=== PATIENT | male | born 1990 | race Caucasian/White ===

== ENCOUNTER 2017-06-26 13:12 | Inpatient (IN) | payer BC, OTHER ==
[~2017-06-26] VITALS: Ht 182.9 cm; Wt 75.3 kg
[2017-06-26] MEDS ORDERED: MIRALAX 17 GM POWD.PACK PO PRN (15:45)
[2017-06-26] MEDS ORDERED: LOPERAMIDE HCL 2 MG CAPSULE PO PRN ×2 (15:45)
[2017-06-26] MEDS ORDERED: LORAZEPAM 1 MG TABLET PO PRN ×2 (15:45)
[2017-06-26] MEDS ORDERED: LORAZEPAM 2 MG/1 ML VIAL IM PRN (15:45)
[2017-06-26] MEDS ORDERED: CLONIDINE HCL 0.1 MG TABLET PO PRN (15:45)
[2017-06-26] MEDS ORDERED: DICYCLOMINE HCL 20 MG TABLET PO PRN (15:45)
[2017-06-26] MEDS ORDERED: METHOCARBAMOL 750 MG TABLET PO PRN (15:45)
[2017-06-26] MEDS ORDERED: ONDANSETRON 4 MG/2 ML VIAL IM PRN (15:45)
[2017-06-26] MEDS ORDERED: MAGNESIUM HYDROXIDE 30 ML LIQUID UDC PO PRN (15:45)
[2017-06-26] MEDS ORDERED: HYDROXYZINE PAMOATE 25 MG CAPSULE PO PRN (15:45)
[2017-06-26] MEDS ORDERED: ONDANSETRON ODT 4 MG TAB.RAPDIS SL PRN (15:45)
[2017-06-26] MEDS ORDERED: MAG HYDROX/AL HYDROX/SIMETH 30 ML LIQUID UDC PO PRN (15:45)
[2017-06-26] MEDS ORDERED: BUPRENORPHINE HCL 2 MG TAB.SUBL SL PRN (15:45)
[2017-06-26] MEDS ORDERED: diphenhydrAMINE 50 MG CAPSULE PO PRN (15:45)
[2017-06-26] MEDS ORDERED: ACETAMINOPHEN 325 MG TABLET PO PRN (15:45)
[2017-06-26 16:00] VITALS: BP 115/66
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
[2017-06-26] MEDS ORDERED: MOME13HF INH (16:31)
[2017-06-26] MEDS ORDERED: BUDE10.2 INH (16:31)
[2017-06-26 16:52] LABS: *AMPHETAMINE, URINE NEGATIVE (NEGATIVE); *BARBITURATE, URINE NEGATIVE (NEGATIVE); *CANNABINOID, URINE POSITIVE (NEGATIVE); *COCCAINE, URINE NEGATIVE (NEGATIVE); *OPIATE, URINE POSITIVE (NEGATIVE); *PHENCYCLIDINE SCREEN,URINE NEGATIVE (NEGATIVE)
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
[2017-06-26 20:16] LABS: BASOPHILS # (AUTO) 0.1 K/uL (0.0-8.0); BASOPHILS % (AUTO) 1.2 % (0.0-2.0); EOSINOPHILS # (AUTO) 0.4 K/uL (0.0-0.7); EOSINOPHILS % (AUTO) 4.1 % (0.0-7.0); HEMATOCRIT 40.9 % (40-50); HEMOGLOBIN 13.4 G/DL (14.0-18.0); LYMPHOCYTES # (AUTO) 2.8 K/UL (0.8-4.8); LYMPHOCYTES % (AUTO) 30.3 % (20.5-51.5); MEAN CORPUSCULAR HEMOGLOBIN 29.4 UUG (27.0-31.0); MEAN CORPUSCULAR HGB CONC 33 g/dL (32.0-37.0); MEAN CORPUSCULAR VOLUME 89.8 FL (82.0-92.0); MONOCYTES # (AUTO) 0.8 K/UL (0.1-1.30); MONOCYTES % (AUTO) 8.6 % (0.0-11.0); NEUTROPHILS # (AUTO) 5.2 K/UL (1.8-8.9); NEUTROPHILS % (AUTO) 55.8 % (38.5-71.5); PLATELET COUNT (AUTO) 266 K/UL (150-450); RED BLOOD CELL COUNT(AUTO) 4.55 MIL/UL (4.7-6.1); WHITE BLOOD COUNT (AUTO) 9.3 K/UL (4.0-11.2)
[2017-06-26 20:29] LABS: ETHANOL < 3 MG/DL (0-0)
[2017-06-26 20:32] LABS: ALANINE AMINOTRANSFERASE 34 U/L (16-63); ALKALINE PHOSPHATASE 60 U/L (50-136); ASPARTATE AMINOTRANSFERASE 16 U/L (15-37); BILIRUBIN,TOTAL 0.3 mg/dL (0.2-1.0); CARBON DIOXIDE 31 mmol/L (21-32); CHLORIDE 104 mmol/L (98-107); GLUCOSE 72 mg/dL (74-106); POTASSIUM 3.6 mmol/L (3.5-5.1); TOTAL PROTEIN, SERUM 6.5 g/dL (6.4-8.2); UREA NITROGEN, BLOOD 10 mg/dL (7-18)
[2017-06-26] MEDS ORDERED: LORAZEPAM 1 MG TABLET PO ONE (21:00)
--- NOTE | 2017-06-27 07:20 | NUR ---
Start of Shift Endorsement received from nightshift nurse. PT is a 27 y/o male admitted for Benzo and Opiate dependence. Pt has been placed on a 5 day Ativan and 5 day Subutex taper. Pt is tolerating the taper AEB COWS 5, CIWA 5 at 1999. PT reports sleeping 11 hours. PT did not receive any PRN medications. Pt is alert and oriented x4. VS WNL. Full Code. All safety precautions are in place, side rails x2, bed in flat position. All needs have been met at this time, will continue to monitor.
[2017-06-27 08:00] VITALS: BP 139/77
[2017-06-27] MEDS: BUPRENORPHINE HCL 2 MG TAB.SUBL SL SCH ×4 (09:00→21:13)
[2017-06-27] MEDS: LORAZEPAM 1 MG TABLET PO SCH ×4 (09:00→21:13)
[2017-06-27] MEDS ORDERED: TUBERCULIN,PURIF.PROT.DERIV. 5 TU/0.1 ML TEST ID ONE (09:00)
[2017-06-27 12:00] VITALS: BP 130/72
[2017-06-27] MEDS: GABAPENTIN 300 MG CAPSULE PO SCH ×2 (14:29→21:13)
[2017-06-27 16:00] VITALS: BP 128/80
--- NOTE | 2017-06-27 18:27 | NUR ---
End of Shift Endorsement given to nightshift nurse. PT is a 27 y/o male admitted for Benzo and Opiate dependence. Pt has been placed on a 5 day Ativan and 5 day Subutex taper. Pt is tolerating the taper AEB COWS 6, CIWA 3 at 1600. PT participates in groups and activities. Pt received PRN Robaxin and Motrin for back pain , medications were effective. Educated Pt on medication and diet regimen. Encouraged pt to drink more fluids. Pt is alert and oriented x4. VS WNL. Full Code. All safety precautions are in place, side rails x2, bed in flat position. All needs have been met at this time, will continue to monitor.
--- NOTE | 2017-06-27 19:12 | NUR ---
Start of shift note Received report from day shift nurse. Pt is a 27 yo male, A+Ox4, presenting to [facility] for Benzo/Opiate dependence. Pt has Allergies to Cefaclor, is on Full code status, and on Regular diet. Pt is on Fall and Seizure precautions. Pt has HX of facial reconstruction, cyst removal, and back injury. Pt is on 5 day Ativan and 5 day Subutex tapers, tolerated well. No s/s of distress noted at this time. Respirations even and unlabored. Will continue to monitor.
[2017-06-27 20:12] VITALS: BP 131/86
[2017-06-27] MEDS ORDERED: GABAPENTIN 300 MG CAPSULE PO SCH (21:00)
--- NOTE | 2017-06-27 21:17 | NUR ---
PRN Clonidine Pt c/o anxiety and requested for PRN Clonidine. Medication given and tolerated well. Will reassess within 1 HR. Will continue to monitor.
--- NOTE | 2017-06-27 22:15 | NUR ---
PRN Clonidine Reassessment Medication effective. Pt expresses reduction in anxiety. No s/s of ASE/distress noted at this time. Respirations even and unlabored. Will continue to monitor.
[2017-06-28 00:12] VITALS: BP 124/76
[2017-06-28 04:16] VITALS: BP 123/72
[2017-06-28] MEDS: IBUPROFEN 600 MG TABLET PO PRN (05:53)
--- NOTE | 2017-06-28 05:59 | NUR ---
PRN Motrin, Robaxin, and Vistaril Pt c/o back pain 6/10 and anxiety. PRN Motrin, Robaxin, and Vistaril given and tolerated well. Will reassess within 1 HR. Will continue to monitor.
[2017-06-28 06:06] LABS: HEPATITIS B SURFACE AG Negative (Negative)
--- NOTE | 2017-06-28 06:53 | NUR ---
PRN Motrin, Robaxin, and Vistaril Reassessment Medications effective. Pt is resting in bed at this time. No s/s of ASE/distress noted at this time. Respirations even and unlabored. Will continue to monitor.
--- NOTE | 2017-06-28 07:00 | NUR ---
End of shift note Pt is a 27 yo male, A+Ox4, presenting to [facility] for Benzo/Opiate dependence. Pt has Allergies to Cefaclor, is on Full code status, and on Regular diet. Pt is on Fall and Seizure precautions. Pt has HX of facial reconstruction, cyst removal, and back injury. Pt is on 5 day Ativan and 5 day Subutex tapers, tolerated well. Pt was given PRN Clonidine @2117 and PRN Motrin, Robaxin, and Vistaril @0559. Pt slept for a total of 5 HRS. Last COWS: 3 and Last CIWA: 3 @0400. No s/s of distress noted at this time. Respirations even and unlabored. Will endorse to day shift nurse.
--- NOTE | 2017-06-28 07:20 | NUR ---
Start of Shift Endorsement received from nightshift nurse. PT is a 27 y/o male admitted for Benzo and Opiate dependence. Pt has been placed on a 5 day Ativan and 5 day Subutex taper. Pt is tolerating the taper AEB COWS 3, CIWA 3 at 0400. PT reports sleeping 5 hours. PT received PRN Motrin, Robaxin and Vistaril. Pt reports feeling anxious and restless upon morning assessment. Educated pt on deep breathing technique to help relieve his anxiety. Pt is alert and oriented x4. VS WNL. Full Code. All safety precautions are in place, side rails x2, bed in flat position. All needs have been met at this time, will continue to monitor.
[2017-06-28 08:00] VITALS: BP 115/61
[2017-06-28] MEDS: GABAPENTIN 300 MG CAPSULE PO SCH ×3 (08:17→20:45)
[2017-06-28] MEDS: LORAZEPAM 1 MG TABLET PO SCH ×3 (08:17→20:45)
[2017-06-28] MEDS: BUPRENORPHINE HCL 2 MG TAB.SUBL SL SCH ×3 (08:17→20:46)
[2017-06-28 12:00] VITALS: BP 105/68
[2017-06-28] MEDS ORDERED: BUPRENORPHINE HCL 2 MG TAB.SUBL SL ONE (12:15)
[2017-06-28] MEDS ORDERED: LORAZEPAM 1 MG TABLET PO ONE (12:15)
--- NOTE | 2017-06-28 14:11 | NUR ---
Prompted cleint to attend group, Client agreed to attend group.
[2017-06-28] MEDS: BACLOFEN 10 MG TABLET PO SCH ×2 (14:45→20:45)
[2017-06-28 16:00] VITALS: BP 130/74
--- NOTE | 2017-06-28 19:00 | NUR ---
End of Shift Endorsement given to nightshift nurse. PT is a 27 y/o male admitted for Benzo and Opiate dependence. Pt has been placed on a 5 day Ativan and 5 day Subutex taper. Pt is tolerating the taper and mildly withdrawing AEB COWS 4, CIWA 3 at 1600. PT participates in groups. Pt received one time dose of Subutex 4mg and Ativan 2mg per Dr. Mathis. Pt did not receive any PRN medications. Encouraged pt to participate in activities. Pt remains cooperative and follows diet and medication regimen. Intake: 2550ml, Void x8. Educated Pt on medication and diet regimen. Encouraged pt to drink more fluids. Pt is alert and oriented x4. VS WNL. Full Code. All safety precautions are in place, side rails x2, bed in flat position. All needs have been met at this time, will continue to monitor.
--- NOTE | 2017-06-28 19:10 | NUR ---
Start of shift note Received report from day shift nurse. Pt is a 27 yo male, A+Ox4, presenting to [facility] for Benzo/Opiate dependence. Pt has Allergies to Cefaclor, is on Full code status, and on Regular diet. Pt is on Fall and Seizure precautions. Pt has HX of facial reconstruction, cyst removal, and back injury. Pt is on 5 day Ativan and 5 day Subutex tapers, tolerated well. No s/s of distress noted at this time. Respirations even and unlabored. Will continue to monitor.
[2017-06-28 20:12] VITALS: BP 134/83
[2017-06-28] MEDS: CLONIDINE HCL 0.1 MG TABLET PO SCH (20:45)
[2017-06-29 00:22] VITALS: BP 131/79
[2017-06-29 04:28] VITALS: BP 127/76
--- NOTE | 2017-06-29 06:50 | NUR ---
End of shift note Pt is a 27 yo male, A+Ox4, presenting to [facility] for Benzo/Opiate dependence. Pt has Allergies to Cefaclor, is on Full code status, and on Regular diet. Pt is on Fall and Seizure precautions. Pt has HX of facial reconstruction, cyst removal, and back injury. Pt is on 5 day Ativan and 5 day Subutex tapers, tolerated well. Pt slept for a total of 4 HRS. Last COWS: 2 and Last CIWA: 1 @0400. No s/s of distress noted at this time. Respirations even and unlabored. Will endorse to day shift nurse.
--- NOTE | 2017-06-29 07:30 | NUR ---
START OF SHIFT NOTE Received report from night nurse, 27 year old male admitted for Benzo and Opiate dependence. Pt has been placed on a 5 day Ativan and 5 day Subutex taper. Patient has HX of facial reconstruction, cyst removal, and back injury. Per endorsement patient did not receive any PRN Slept for 4 hours, Last CIWA-. Patient remained compliant with treatment plan and medication regime. All safety measures in place, Call light within reach. Patient endorsed to night nurse in stable condition.
[2017-06-29] MEDS: IBUPROFEN 600 MG TABLET PO PRN (07:32)
--- NOTE | 2017-06-29 07:32 | NUR ---
PRN MOTRIN Patient was c/o of back aches 4/10, PRN Motrin 600mg Po was given as ordered. Will cont to monitor and reassess.
[2017-06-29 08:00] VITALS: BP 145/85
--- NOTE | 2017-06-29 08:32 | NUR ---
MOTRIN REASSESSMENT Patient reported medication was effective pain decreased to 1/10.
[2017-06-29] MEDS: BACLOFEN 10 MG TABLET PO SCH (08:49)
[2017-06-29] MEDS: LORAZEPAM 1 MG TABLET PO SCH ×2 (08:49→12:42)
[2017-06-29] MEDS: GABAPENTIN 300 MG CAPSULE PO SCH (08:49)
[2017-06-29] MEDS: CLONIDINE HCL 0.1 MG TABLET PO SCH ×3 (08:50→21:42)
[2017-06-29] MEDS ORDERED: BUPRENORPHINE HCL 2 MG TAB.SUBL SL SCH (09:00)
[2017-06-29] MEDS ORDERED: LORAZEPAM 1 MG TABLET PO SCH ×3 (09:00→21:00)
[2017-06-29 12:00] VITALS: BP 136/73
[2017-06-29] MEDS ORDERED: KETOROLAC TROMETHAMINE 30 MG INJ IM PRN (13:30)
[2017-06-29] MEDS: GABAPENTIN 400 MG CAPSULE PO SCH ×2 (14:10→21:42)
[2017-06-29] MEDS: BACLOFEN 20 MG TABLET PO SCH ×2 (14:10→21:43)
[2017-06-29] MEDS: BUPRENORPHINE HCL 2 MG TAB.SUBL SL SCH ×2 (14:11→21:43)
[2017-06-29 16:00] VITALS: BP 121/82
[2017-06-29] MEDS ORDERED: BUPRENORPHINE HCL 2 MG TAB.SUBL SL ONE (16:00)
--- NOTE | 2017-06-29 16:46 | NUR ---
SUBUTEX 2MG SL x1 GIVEN COWS score-11, One time Subutex 2mg SL given at this time. Will cont to monitor for effectiveness.
--- NOTE | 2017-06-29 17:16 | NUR ---
REASSESSMENT SUBUTEX 2MG SL Per patient, PRN Subutex was effective in nreducing patient's withdrawal symptoms. COWS score noted 7.
--- NOTE | 2017-06-29 19:14 | NUR ---
END OF SHIFT NOTE Patient is alert oriented x4. 27 year old male admitted for BENZO/OPIOID dependence. Patient has PMH of facial reconstruction, cyst removal, and back injury. Patient cont on 5 days Ativan taper/5 days Subutex taper tolerating well. Medications were effective in reducing withdrawal symptoms. Patient received PRN Motrin/ x1 dose of Subutex 2mg SL during shift noted to be effective. Skin intact warm and dry to touch. Last CIWA-7/COWS-8. Patient remained compliant with treatment plan and medication regime. All safety measures in place, Call light within reach. Patient endorsed to night nurse in stable condition.
--- NOTE | 2017-06-29 19:30 | NUR ---
START OF SHIFT Patient is 27-year-old male admitted on 06/26/17 for Xanax, Klonopin, Percocet, and PCP substance abuse. Patient has PmHx of back surgery, facial reconstructive surgery, cyst removed from left arm and seizure. Patient is FULL code, allergic to cefaclor, on regular diet. Upon assessment, patient is alert and oriented x4, complaining of some generalized body aches. Patient is currently on a 5 day Ativan and Subutex taper, tolerating well. Patient is on fall and seizure precautions, last seizure was 3 weeks ago. Patients skin is intact with exception to some minor abrasions on his right knee. Patients bed is locked in low position, side rails up x2, call light within reach. Will continue to monitor.
[2017-06-29 20:00] VITALS: BP 116/70
--- NOTE | 2017-06-30 | NUR ---
MIDNIGHT VITALS, CIWA & COWS Patient refused to be woken up for midnight vital signs. Patient's respirations are even and unlabored, no distress noted at this time. CIWA and COWS scores unable to be assessed while patient is asleep, to be scored while awake per protocol. Safety measures in place, will continue to monitor.
--- NOTE | 2017-06-30 04:00 | NUR ---
0400 VITALS, CIWA & COWS Patient refused to be woken up for 0400 vital signs. Patient's respirations are even and unlabored, no distress noted at this time. CIWA and COWS scores unable to be assessed while patient is asleep, to be scored while awake per protocol. Safety measures in place, will continue to monitor.
[2017-06-30] MEDS: IBUPROFEN 600 MG TABLET PO PRN ×2 (07:08→20:56)
--- NOTE | 2017-06-30 07:08 | NUR ---
PRN MOTRIN Patient complained of moderate to severe back pain, requested pain medication. PRN Motrin was given PO. Will endorse to day shift to reassess.
--- NOTE | 2017-06-30 07:14 | NUR ---
END OF SHIFT Patient is 27-year-old male admitted on 06/26/17 for Xanax, Klonopin, Percocet, and PCP substance abuse. Patient has PmHx of back surgery, facial reconstructive surgery, cyst removed from left arm and seizure. Patient is FULL code, allergic to cefaclor, on regular diet. Patient is on fall and seizure precautions, last seizure was 3 weeks ago. Patients skin is intact with exception to some minor abrasions on his right knee. PRN Motrin was given for back pain. Patients last COWS 6, CIWA 8. Patient slept for 8 hours, total intake 1138mL, void x3, no BM. Patients bed is locked in low position, side rails up x2, call light within reach. Will endorse to day shift.
--- NOTE | 2017-06-30 07:15 | NUR ---
Start of Shift Endorsement received from nightshift nurse. PT is a 27 y/o male admitted for Benzo and Opiate dependence. Pt has been placed on a 5 day Ativan and 5 day Subutex taper. Pt is tolerating the taper and moderately withdrawing AEB COWS 6, CIWA 8 at midnight. PT reports sleeping 8 hours. PT did not receive any PRN medications. Pt is alert and oriented x4. VS WNL. Full Code. All safety precautions are in place, side rails x2, bed in flat position. All needs have been met at this time, will continue to monitor.
[2017-06-30 08:00] VITALS: BP 123/78
[2017-06-30] MEDS: LORAZEPAM 1 MG TABLET PO SCH ×3 (08:20→20:55)
[2017-06-30] MEDS: CLONIDINE HCL 0.1 MG TABLET PO SCH ×2 (08:20→15:00)
[2017-06-30] MEDS: BACLOFEN 20 MG TABLET PO SCH ×3 (08:20→20:55)
[2017-06-30] MEDS: GABAPENTIN 400 MG CAPSULE PO SCH (08:20)
[2017-06-30] MEDS ORDERED: LORAZEPAM 1 MG TABLET PO SCH (09:00)
[2017-06-30] MEDS ORDERED: BUPRENORPHINE HCL 2 MG TAB.SUBL SL SCH (09:00)
[2017-06-30 12:00] VITALS: BP 108/62
[2017-06-30] MEDS ORDERED: BUPRENORPHINE HCL 2 MG TAB.SUBL SL ONE (13:30)
--- NOTE | 2017-06-30 13:45 | NUR ---
Activity Group Note: Client attended activity group. Client refused to participate in "Sequence" activity stating, "I don't even know what that game is." Client appeared to have a euthymic mood with flat affect. Client did not interact with peers or secondary social studies teacher, and left activity group 30 minutes early. nitro worker will continue to encourage participation in activity group.
--- NOTE | 2017-06-30 14:20 | NUR ---
Medication re-assessment Pt reports effectiveness AEB BM x1.
--- NOTE | 2017-06-30 15:21 | NUR ---
PRN Miralax Administered PRN Miralax due to pt reporting constipation. will re-assess. Addendum: 06/30/17 at 1906 by MARILIN FARLEY RN Medication was re-assessed and was effective. Pt reported BM x1
[2017-06-30 16:00] VITALS: BP 125/71
[2017-06-30] MEDS: BUPRENORPHINE HCL 2 MG TAB.SUBL SL SCH ×2 (16:42→20:56)
--- NOTE | 2017-06-30 19:06 | NUR ---
End of Shift Endorsement given to nightshift nurse. PT is a 27 y/o male admitted for Benzo and Opiate dependence. Pt has been placed on a 5 day Ativan and 5 day Subutex taper. Pt is tolerating the taper and moderately withdrawing AEB COWS 6, CIWA 5 at 1600. PT participates in groups and activities. Pt received one time dose of Subutex per Dr. Mathis. Pt received PRN Miralax, medication was effective AEB pt reporting BM x1. Intake: 3873ml, Void x5, BM x1. Pt remains cooperative and follows diet and medication regimen. Educated Pt on medication and diet regimen. Encouraged pt to drink more fluids. Pt is alert and oriented x4. VS WNL. Full Code. All safety precautions are in place, side rails x2, bed in flat position. All needs have been met at this time, will continue to monitor.
--- NOTE | 2017-06-30 19:38 | NUR ---
START OF SHIFT Patient is 27-year-old male admitted on 06/26/17 for Xanax, Klonopin, Percocet, and PCP substance abuse. Patient has past medical history of facial reconstructive surgery x2, back injury, cyst removal from left arm, and history of seizure; last seizure was 3 weeks ago. Patient is FULL code, on regular diet, and allergic to cefaclor. Patient is currently on 5 day Ativan and 5 day Subutex taper, tolerating well. Upon assessment, patient is alert and oriented x4, reports muscles aches in his face, back and legs, averaging 7/10 on pain scale. Patient has some minor skin abrasions on his right knee. Patient is on fall and seizure precautions, safety measures in place, bed locked in low position, side rails up x2, call light within reach. Will continue to monitor.
[2017-06-30 20:00] VITALS: BP 131/80
[2017-06-30] MEDS: GABAPENTIN 300 MG CAPSULE PO SCH (20:55)
--- NOTE | 2017-06-30 20:56 | NUR ---
PRN MOTRIN Patient complained of pain, 7/10, including his face, back and legs. Patient requested pharmacological pain relief. PRN Motrin 600mg PO given. Safety measures in place, call light within reach, will reassess in one hour.
--- NOTE | 2017-06-30 21:56 | NUR ---
PRN MOTRIN REASSESSMENT Patient reports pain relief, decrease in pain from 7/10 to 4/10, patient reports this as a tolerable level. Patient's breathing is even and unlabored, no respiratory distress noted at this time. Safety measures in place, call light within reach, will continue to monitor.
--- NOTE | 2017-07-01 | NUR ---
MIDNIGHT VITALS, COWS & CIWA Patient refused to be woken up for midnight vital signs. Patient's respirations at 16/min are even and unlabored, no distress noted at this time. COWS and CIWA scores unable to be assessed while patient is asleep, to be scored while awake per protocol. Safety measures in place, call light within reach, will continue to monitor.
--- NOTE | 2017-07-01 04:00 | NUR ---
4AM VITALS REFUSED, COWS & CIWA DEFERRED Patient refused to be woken up for 4AM vital signs. Patient's respirations at 16/min are even and unlabored, no distress noted at this time. COWS and CIWA deferred; unable to be assessed while patient is asleep, to be scored while awake per protocol. Safety measures in place, call light within reach, will continue to monitor.
--- NOTE | 2017-07-01 07:22 | NUR ---
END OF SHIFT Patient is 27-year-old male admitted on 06/26/17 for Xanax, Klonopin, Percocet, and PCP substance abuse. Patient has past medical history of facial reconstructive surgery x2, back injury, cyst removal from left arm, and history of seizure; last seizure was 3 weeks ago. Patient is FULL code, on regular diet, and allergic to cefaclor. Patient has some minor skin abrasions on his right knee. Patient received PRN Motrin for muscle aches and pains, PRN Motrin was effective. Last COWS score was 6, last CIWA score was 5. Patient slept 6 hours, total intake 795mL, void x2, BM x0. Patient is on fall and seizure precautions, safety measures in place, bed locked in low position, side rails up x2, call light within reach. Will endorse to day shift.
[2017-07-01 08:00] VITALS: BP 127/69
--- NOTE | 2017-07-01 08:00 | NUR ---
Start of shift note; Received report from night nurse. Patient is a 27 year old male admitted on 06/26/17 for Benzo/Opiate dependence. Patient reported history of facial reconstruction, back injury and seizure. Patient was placed on 5 day Ativan and 5 day Subutex tapers, no adverse reaction noted. Patient is on fall and seizure precaution. All safety measures secured. Will continue to monitor patient.
[2017-07-01] MEDS: GABAPENTIN 300 MG CAPSULE PO SCH ×2 (08:22→20:38)
[2017-07-01] MEDS: LORAZEPAM 1 MG TABLET PO SCH ×2 (08:22→20:38)
[2017-07-01] MEDS: BACLOFEN 20 MG TABLET PO SCH ×3 (08:22→20:38)
[2017-07-01] MEDS: IBUPROFEN 600 MG TABLET PO PRN (08:22)
[2017-07-01] MEDS: BUPRENORPHINE HCL 2 MG TAB.SUBL SL SCH ×2 (08:22→20:39)
--- NOTE | 2017-07-01 08:22 | NUR ---
PRN medication; Patient is complaining of back pain rated 5/10, PRN Motrin given PO. Will continue to monitor patient for effectiveness of medication.
[2017-07-01] MEDS ORDERED: LORAZEPAM 1 MG TABLET PO SCH (09:00)
[2017-07-01] MEDS ORDERED: BUPRENORPHINE HCL 2 MG TAB.SUBL SL SCH (09:00)
--- NOTE | 2017-07-01 09:22 | NUR ---
Re-assessment; Patient denies pain at this time. PRN medication noted to be effective.
[2017-07-01 12:00] VITALS: BP 130/78
--- NOTE | 2017-07-01 13:45 | NUR ---
Activity Group Note: Client attended activity group. When prompted, client refused to participate in "painting" activity. Client's mood appeared hostile with flat affect. Client stated, "I do not want to paint, I want to watch TV." Client was educated on protocol for activity group by social services analyst, but continued to watch TV. Client was prompted by database technician to cease watching TV, and client left the room. Client did not interact with peers. emergency worker will continue to encourage participation in activity group.
[2017-07-01 16:00] VITALS: BP 122/85
--- NOTE | 2017-07-01 18:19 | NUR ---
End of shift note; Patient is AOX4. Patient is a 27 year old male admitted on 06/26/17 for Benzo/Opiate dependence. Patient reported history of facial reconstruction, back injury and seizure. Patient was placed on 5 day Ativan and 5 day Subutex tapers, no adverse reaction noted. Patient is on fall and seizure precaution. Patient remained compliant with treatment plan and medication regime. Medications were effective in reducing withdrawal symptoms. All safety measures secured. Met all needs.
--- NOTE | 2017-07-01 19:30 | NUR ---
START OF SHIFT Patient is a 27 year old male admitted for Benzo/Opiate dependence. PMH of facial reconstruction, back injury and seizure. Patient was placed on 5 day Ativan and 5 day Subutex tapers, no adverse reaction noted. Patient is on fall and seizure precaution. Patient remains compliant with treatment plan and medication regime. Last COWS=3,CIWA=3.Pt is A/O X 4,allergic to Cefaclor,on regular diet,full code status. All safety measures in place per hospital policy,call light within reach. Met all needs. Will continue to monitor.
[2017-07-01 20:00] VITALS: BP 131/73
--- NOTE | 2017-07-02 | NUR ---
Pt refused V/S;COWS and CIWA deferred d/t sleep. Pt is in deep sleep,breathing is even and non labored,no s/s of distress noted.
--- NOTE | 2017-07-02 04:00 | NUR ---
Pt refused V/S;COWS and CIWA deferred d/t sleep. Pt is in deep sleep,breathing is even and non labored,no s/s of distress noted.
--- NOTE | 2017-07-02 06:43 | NUR ---
END OF SHIFT Patient is a 27 year old male admitted for Benzo/Opiate dependence. PMH of facial reconstruction, back injury and seizure. Patient was placed on 5 day Ativan and 5 day Subutex tapers, no adverse reaction noted. Patient is on fall and seizure precaution. Patient remains compliant with treatment plan and medication regime. Last COWS=3,CIWA=3.Pt is A/O X 4,allergic to Cefaclor,on regular diet,full code status.No PRN meds given last night.Pt slept 7 hrs,fluid intake was 1757 mls,voided x 4,b/m x 1. All safety measures in place per hospital policy,call light within reach. Met all needs. Will continue to monitor.
--- NOTE | 2017-07-02 07:16 | NUR ---
Start of shift note; Received report from night nurse. Patient is a 27 year old male admitted on 06/26/17 for Benzo/Opiate dependence. Patient reported history of facial reconstruction, back injury and seizure. Patient was placed on 5 day Ativan and 5 day Subutex tapers, no adverse reaction noted. Patient is on fall and seizure precaution. All safety measures secured. Patient had an uneventful night, no PRN medications were given. Will continue to monitor patient.
[2017-07-02 08:00] VITALS: BP 99/65
[2017-07-02] MEDS: IBUPROFEN 600 MG TABLET PO PRN ×2 (08:10→20:43)
[2017-07-02] MEDS: BACLOFEN 20 MG TABLET PO SCH ×3 (08:10→20:43)
[2017-07-02] MEDS: GABAPENTIN 300 MG CAPSULE PO SCH ×2 (08:10→20:43)
--- NOTE | 2017-07-02 08:10 | NUR ---
PRN medication; Patient is complaining of back pain rated 7/10, PRN Motrin 600mg PO given for pain. Will continue to monitor patient for effectiveness of medication.
[2017-07-02] MEDS ORDERED: BUPRENORPHINE HCL 2 MG TAB.SUBL SL SCH (09:00)
[2017-07-02] MEDS ORDERED: LORAZEPAM 1 MG TABLET PO SCH (09:00)
--- NOTE | 2017-07-02 09:10 | NUR ---
Re-assessment; Patient denies back pain at this time. PRN Motrin was effective.
[2017-07-02 12:00] VITALS: BP 104/65
[2017-07-02 16:00] VITALS: BP 122/83
--- NOTE | 2017-07-02 18:16 | NUR ---
End of shift note; Patient is AOX4. Patient is a 27 year old male admitted on 06/26/17 for Benzo/Opiate dependence. Patient reported history of facial reconstruction, back injury and seizure. Patient was placed on 5 day Ativan and 5 day Subutex tapers, no adverse reaction noted. Patient is on fall and seizure precaution. All safety measures secured. Patient remained compliant with treatment plan and medication regime. Medications were effective in reducing withdrawal symptoms. Met all needs.
--- NOTE | 2017-07-02 18:54 | NUR ---
PRN medication; Patient is complaining of generalized pain rated 6/10, Tylenol PO given for pain. Will endorse to night nurse for re-assessment.
[2017-07-02 20:00] VITALS: BP 131/71
--- NOTE | 2017-07-02 20:00 | NUR ---
START OF SHIFT Received report from day shift nurse. Pt attended a group meeting and returned to his room after. He is a 27 yo male admitted to [facility] on 06/26 for opiate and BZD dependence. He is A&O x4 and ambulatory. Allergic to cefaclor, full code status, and on a regular diet. PMH of facial reconstructive surgery, left arm cyst removal, back injury, and seizure. On admission he reported using xanax 3mg per day, klonopin 3 mg per day, percocet 60mg per day, PCP, and marijuana. 5 day Ativan and 5 day Subutex tapers completed and he is scheduled for discharge tomorrow. Pt reports mild headache. No other s/s of withdrawal. Fall and seizure precautions in place. Bed is down with call light in reach.
--- NOTE | 2017-07-02 20:01 | NUR ---
PRN Tylenol reassessment PRN Tylenol somewhat effective. Pt reports headache is at a mild level.
--- NOTE | 2017-07-02 20:44 | NUR ---
PRN Motrin Pt reports mild headache. PRN Motrin administered.
--- NOTE | 2017-07-02 21:44 | NUR ---
PRN Motrin reassessment PRN Motrin effective. Pt reports headache is relieved.
[2017-07-02] MEDS ORDERED: DICY20TA28 PO (22:29)
[2017-07-02] MEDS ORDERED: IBUP-1955 PO (22:29)
[2017-07-02] MEDS ORDERED: DIPH50CA37 PO (22:29)
[2017-07-02] MEDS ORDERED: BACL20TA PO (22:29)
[2017-07-02] MEDS ORDERED: HYDR-3895 PO (22:29)
[2017-07-02] MEDS ORDERED: GABA-534 PO (22:31)
[2017-07-03] VITALS: BP 105/65
--- NOTE | 2017-07-03 | NUR ---
0000 COWS and CIWA deferred COWS and CIWA ordered Q4HWA. Pt is lying in bed resting with eyes closed. Vital signs obtained. Safety measures in place.
--- NOTE | 2017-07-03 04:00 | NUR ---
0400 Vitals refused/COWS and CIWA deferred Pt refused to be woken for 0400 vitals. He is lying in bed resting with eyes closed. Respirations even and unlabored. COWS and CIWA ordered Q4HWA. Safety measures in place.
--- NOTE | 2017-07-03 07:10 | NUR ---
Start of Shift Endorsement received from nightshift nurse. PT is a 27 y/o male admitted for Benzo and Opiate dependence. Pt has been placed on a 5 day Ativan and 5 day Subutex taper. Pt is tolerating the taper and mildly withdrawing AEB COWS 2, CIWA 2 at 0400. PT reports sleeping 8 hours. PT received PRN Motrin. Pt has completed both tapers and has been scheduled to be discharged today, 07/03/17. All discharge education and documentation has been completed. PT reports readiness for sobriety. Pt is alert and oriented x4. VS WNL. Full Code. All safety precautions are in place, side rails x2, bed in flat position. All needs have been met at this time, will continue to monitor.
--- NOTE | 2017-07-03 07:21 | NUR ---
END OF SHIFT Report provided to day shift nurse. Pt is lying in bed resting. He is a 27 yo male admitted to [facility] on 06/26 for opiate and BZD dependence. He is A&O and ambulatory. Allergic to cefaclor, full code status, and on a regular diet. PMH of facial reconstructive surgery, left arm cyst removal, back injury, and seizure. On admission he reported using xanax 3mg per day, klonopin 3 mg per day, percocet 60mg per day, PCP, and marijuana. He completed 5 day Ativan and 5 day Subutex tapers and is scheduled for discharge today. PRN Motrin administered. Last COWS 2 and CIWA 2. He drank 1105mL and slept for 8 hours. Fall and seizure precautions in place. Bed is down with call light in reach.
[2017-07-03 08:00] VITALS: BP 135/74
[2017-07-03] MEDS: BACLOFEN 20 MG TABLET PO SCH (08:35)
[2017-07-03] MEDS: GABAPENTIN 300 MG CAPSULE PO SCH (08:35)
[2017-07-03] MEDS: IBUPROFEN 600 MG TABLET PO PRN (09:08)
--- NOTE | 2017-07-03 09:42 | NUR ---
Discharge note PT has been discharged from [facility]. PT is in Stable condition, VS WNL. Denies suicidal and homicidal ideations at this time. All documentation has been completed, paperwork signed and dated. Pt has left with all of his belongings, medications and prescriptions. Pt has been discharged from [facility] on 07/03/17 at 0942. has been Notified.
== END 2017-07-03 09:42 | disposition other institution (70) | DRG 895 ==
LOC: SRC 13:12
PROVIDERS: ADMIT Internal Medicine; ATTEND Internal Medicine
DX: F11.23 Opioid dependence with withdrawal (principal); F33.2 Major depressive disorder, recurrent severe without psychotic features; I15.9 Secondary hypertension, unspecified; F13.230 Sedative, hypnotic or anxiolytic dependence with withdrawal, uncomplicated; F12.20 Cannabis dependence, uncomplicated; Z91.89 Other specified personal risk factors, not elsewhere classified; Z91.5 Personal history of self-harm; F17.210 Nicotine dependence, cigarettes, uncomplicated; F41.9 Anxiety disorder, unspecified; R33.9 Retention of urine, unspecified; Z81.1 Family history of alcohol abuse and dependence; Z80.9 Family history of malignant neoplasm, unspecified; Z87.820 Personal history of traumatic brain injury; D64.9 Anemia, unspecified; M54.5 Low back pain; F16.10 Hallucinogen abuse, uncomplicated; G89.29 Other chronic pain
CPT/HCPCS: 36415; 70030-TC; 80307; 80346; 80349; 80361; 83735; 85025; 86592; 86705; 86803; 87340; 87806; A4663; G0480

== ENCOUNTER 2017-12-11 18:29 | Inpatient (IN) | payer BC, OTHER ==
[~2017-12-11] VITALS: Ht 182.9 cm; Wt 72.6 kg
[~2017-12-11 18:29] MED LIST: BACL20TA PO; BUDE10.2 INH; DICY20TA28 PO; DIPH50CA37 PO; GABA-534 PO; HYDR-3895 PO; IBUP-1955 PO
[2017-12-11] MEDS ORDERED: LORAZEPAM 2 MG/1 ML VIAL IM PRN (21:00)
[2017-12-11] MEDS ORDERED: LOPERAMIDE HCL 2 MG CAPSULE PO PRN ×2 (21:00)
[2017-12-11] MEDS ORDERED: MAG HYDROX/AL HYDROX/SIMETH 30 ML LIQUID UDC PO PRN (21:00)
[2017-12-11] MEDS ORDERED: METHOCARBAMOL 750 MG TABLET PO PRN (21:00)
[2017-12-11] MEDS ORDERED: BUPRENORPHINE HCL 2 MG TAB.SUBL SL PRN (21:00)
[2017-12-11] MEDS ORDERED: DICYCLOMINE HCL 20 MG TABLET PO PRN (21:00)
[2017-12-11] MEDS ORDERED: ONDANSETRON 4 MG/2 ML VIAL IM PRN (21:00)
[2017-12-11] MEDS ORDERED: MAGNESIUM HYDROXIDE 30 ML LIQUID UDC PO PRN (21:00)
[2017-12-11] MEDS ORDERED: MIRALAX 17 GM POWD.PACK PO PRN (21:00)
[2017-12-11] MEDS ORDERED: ONDANSETRON ODT 4 MG TAB.RAPDIS SL PRN (21:00)
[2017-12-11] MEDS ORDERED: CLONIDINE HCL 0.1 MG TABLET PO PRN (21:00)
[2017-12-11] MEDS ORDERED: diphenhydrAMINE 50 MG CAPSULE PO PRN (21:00)
[2017-12-11] MEDS ORDERED: LORAZEPAM 1 MG TABLET PO PRN ×2 (21:00)
[2017-12-11] MEDS ORDERED: ACETAMINOPHEN 325 MG TABLET PO PRN (21:00)
--- NOTE | 2017-12-11 21:15 | NUR ---
Pre admission note Pt seen in intake office. Pt appears intoxicated but in stable condition. V/S WNL. Policies on medication disposal explained to and understood by patient. Will admit to unit. Will continue to monitor.
[2017-12-11 21:44] LABS: BASOPHILS # (AUTO) 0.1 K/uL (0.0-8.0); BASOPHILS % (AUTO) 0.9 % (0.0-2.0); EOSINOPHILS # (AUTO) 0.7 K/uL (0.0-0.7); EOSINOPHILS % (AUTO) 5.3 % (0.0-7.0); HEMATOCRIT 45.6 % (36.7-47.1); HEMOGLOBIN 15.8 g/dL (12.5-16.3); LYMPHOCYTES # (AUTO) 2.2 K/uL (20.0-40.0); LYMPHOCYTES % (AUTO) 17.7 % (20.5-51.5); MEAN CORPUSCULAR HEMOGLOBIN 30.8 uug (23.8-33.4); MEAN CORPUSCULAR HGB CONC 35 g/dL (32.5-36.3); MEAN CORPUSCULAR VOLUME 88.7 fL (73.0-96.2); MONOCYTES # (AUTO) 1.1 K/uL (2.0-10.0); MONOCYTES % (AUTO) 8.9 % (0.0-11.0); NEUTROPHILS # (AUTO) 8.3 K/uL (1.8-8.9); NEUTROPHILS % (AUTO) 67.2 % (38.5-71.5); PLATELET COUNT (AUTO) 242 K/uL (152-348); RED BLOOD CELL COUNT(AUTO) 5.14 MIL/uL (4.06-5.63); WHITE BLOOD COUNT (AUTO) 12.4 K/uL (3.6-10.2)
--- NOTE | 2017-12-11 21:45 | NUR ---
Admission note Pt is a 27 yo male, A+Ox4, presenting to [facility] for Benzo/Opiate/Meth withdrawal. Pt has Allergies to Cefaclor, is on Full code status, and on Regular diet. Pt is 6'0" in height, and 160 LBS in weight. Pt has medical HX of Seizure (November 2016), Anxiety, Depression, Asthma, back injury, Collar bone Fx, Facial bone FX, nad Right knuckles Fx. Pt has no family HX to report. Pt does have a primary care provider but cannot recall name at this time. Pt has been taking Xanax PO for 7 years (1 week currently), has reached a level of 2mg/daily, and last dose was 2mg on 12-11-17 @1999. Pt has been taking Clonazepam PO for 7 years(1 week currently), has reached a level of 2mg/daily, and lasts dose was 2mg on 12-11-17 @1999. Pt has been taking Heroin intranasally for 9 years (1 week currently), has reached a level of 1gm/daily, and last dose was 1gm on 12-10-17. Pt has been taking Methamphetamine intranasally for 1 week, has reached a level of 1gm/daily, and last dose was 1gm on 12-10-17. All of patient's home medications have been reconciled in [facility] for review by . Pt has HX of previous Detox/rehab @ [facility] in 06/2017 followed by 5 months of sober living until 1 week ago. This was the patient's last time sober. Pt has been a cigarette smoker for 16 years and has reached a level of 20/daily. Pt states "I fell way off the wagon this past week so i need to get back on and get sober again". Pt states "I'm doing this for my daughter, she needs her father in her life". Pt states "I knew there was no way that i would survive if i continued using". Pt appears intoxicated but in stable condition. V/S WNL. Will continue to monitor.
[2017-12-11 22:00] VITALS: BP 140/90
[2017-12-11 22:10] LABS: ALANINE AMINOTRANSFERASE 22 U/L (16-63); ALKALINE PHOSPHATASE 85 U/L (50-136); AMYLASE 26 U/L (25-115); ASPARTATE AMINOTRANSFERASE 16 U/L (15-37); CARBON DIOXIDE 27 mmol/L (21-32); CHLORIDE 103 mmol/L (98-107); GLUCOSE 88 mg/dL (74-106); MAGNESIUM 2.2 mg/dL (1.8-2.4); TOTAL PROTEIN, SERUM 7.6 g/dL (6.4-8.2); UREA NITROGEN, BLOOD 11 mg/dL (7-18)
[2017-12-11 22:11] LABS: *AMPHETAMINE, URINE POSITIVE (NEGATIVE); *BARBITURATE, URINE NEGATIVE (NEGATIVE); *CANNABINOID, URINE POSITIVE (NEGATIVE); *COCCAINE, URINE POSITIVE (NEGATIVE); *OPIATE, URINE NEGATIVE (NEGATIVE); *PHENCYCLIDINE SCREEN,URINE NEGATIVE (NEGATIVE)
[2017-12-11 22:17] LABS: ETHANOL < 3 MG/DL (0-0)
[2017-12-11] MEDS ORDERED: GABA600T2 PO (22:53)
[2017-12-11] MEDS ORDERED: CLON1TAB4 PO (22:54)
[2017-12-11] MEDS ORDERED: ALBU6.7H INH (22:54)
[2017-12-11] MEDS ORDERED: ALPR1TAB7 PO (22:54)
[2017-12-11] MEDS ORDERED: VENL75CA62 PO (22:54)
--- NOTE | 2017-12-12 00:39 | NUR ---
PRN Subutex Pt noted with COWS: 12. PRN Subutex given and tolerated well. Will reassess within 30 minutes. Will continue to monitor.
[2017-12-12 00:54] VITALS: BP 137/95
--- NOTE | 2017-12-12 01:05 | NUR ---
PRN Subutex Reassessment Medication effective. COWS:10. No s/s of ASE noted at this time. Respirations even and unlabored. Will continue to monitor.
[2017-12-12 04:25] VITALS: BP 97/66
--- NOTE | 2017-12-12 06:54 | NUR ---
End of shift note Newly admitted patient. Pt was continuously noted with anxiety, restlessness, and agitation. Pt remained in room for majority of shift except to go smoke on smoking patio and to get food from kitchen. Pt was given PRN Subutex 4mg @ 0039. PT slept for a total of 4 HRS. Last COWS: 10 and Last CIWA: 8 @0400. Respirations even and unlabored. Will endorse to day shift nurse.
--- NOTE | 2017-12-12 07:30 | NUR ---
Start of shift note; Received report from night nurse. Patient is a 27 year old male admitted on 12/11/17 for Benzodiazepine/ Opiate/ Meth withdrawals. Patient appears sedated , respirations of 18. Patient to start 3 day Ativan and 3 day Subutex taper when patient starts showing s/s of withdrawals. All safety measures secured. Will closely monitor patient.
[2017-12-12 08:00] VITALS: BP 113/74
[2017-12-12] MEDS: BUPRENORPHINE HCL 2 MG TAB.SUBL SL SCH ×4 (09:00→21:20)
[2017-12-12] MEDS: LORAZEPAM 1 MG TABLET PO SCH ×4 (09:00→21:20)
[2017-12-12] MEDS: GABAPENTIN 300 MG CAPSULE PO SCH ×3 (09:00→21:20)
[2017-12-12] MEDS: FOLIC ACID 1 MG TABLET PO SCH (09:00)
[2017-12-12] MEDS: THIAMINE HCL 100 MG TABLET PO SCH (09:00)
[2017-12-12] MEDS: MULTIVITAMINS,THERAPEUTIC TABLET PO SCH (09:00)
[2017-12-12] MEDS ORDERED: TUBERCULIN,PURIF.PROT.DERIV. 5 TU/0.1 ML TEST ID ONE (09:00)
--- NOTE | 2017-12-12 09:35 | NUR ---
Medications held; Patient appears too sedated. Patient is currently resting , respirations of 20, easily awakened. Morning medications held d/t sedation. Will notify .
[2017-12-12] MEDS ORDERED: ALBUTEROL SULFATE 2.5 MG/ 0.5 ML NEBU NEB PRN (10:30)
--- NOTE | 2017-12-12 11:46 | NUR ---
Medications given; Patient is AOX4. Patient is currently showing s/s of withdrawals, current COWS score of 13 and CIWA of 12. Patient refused PPD. okayed to do late administration of morning medications. Subutex/Ativan/Neurontin given as ordered. Will closely monitor patient.
[2017-12-12 12:00] VITALS: BP 121/82
--- NOTE | 2017-12-12 12:30 | NUR ---
Nurse note; During patient check rounds, patient was found sitting on the floor sleeping. Patient denies any falls and denies hitting his head. Patient stated "I felt sleepy so i fell asleep while sitting on the floor". Assisted patient up on the bed, unsteady gait noted. Patient to be placed under direct supervision for safety. MD notified. Will closely monitor patient.
--- NOTE | 2017-12-12 15:51 | NUR ---
Nurse note; Patient appears too sedated, unsteady gait noted. Patient is responsive to command and tactile stimuli. Patient is under direct supervision for safety. Medications held d/t sedation. Md notified by charge nurse.
[2017-12-12 16:00] VITALS: BP 99/66
--- NOTE | 2017-12-12 19:08 | NUR ---
End of shift note; Patient is AOx4, unsteady gait still noted. Patient appears sedated but able to follow commands and oriented to name, time, place and situation. Patient is under 1:1 supervision for safety. Patient remained compliant with treatment plan and medication regime. All safety measures secured. Endorsed to night nurse. Met all needs.
--- NOTE | 2017-12-12 19:30 | NUR ---
START OF SHIFT NOTE : Pt. is 23 year old male admitted to [facility] on 12/10/17 for medical management of Benzodiazepine and Suboxone withdrawals. Pt reports NKA, Full code and regular diet. PMH Hepatitis C and other Dx, see PV chart for details.. Pt was administered Tylenol(pain) during a day shift. Pt. is on 4 day Subutex taper, started on 12/10/2017, tolerating well. Last COWS=8 recorded at 1600. Pt is A/O x4, is in the activity room , participates in the meeting. Bed in low position with wheels locked and side rails up x2. Will continue to monitor, support and encourage according to plan of care.
[2017-12-12 20:00] VITALS: BP 133/82
--- NOTE | 2017-12-13 06:41 | NUR ---
END OF SHIFT NOTE : Patient is a 27 year old male admitted on 12/11/17 for Benzodiazepine/ Opiate/ Meth withdrawals. He is allergic to Cefaclor, Full Code, on Reg.Diet. Pt. placed on 3 day Subutex and Ativan taper on 12/12/2017. Pt. has history of seizures. Pt. is 1:1 for safety and unsteady gait. No PRNs given during wood barrel reconditioner. CIWA, COWS taken when pt. was awake, last CIWA=6 ,last COWS=9 at 04:00 . Pt. slept all night through. Intake=1,596ml, voided x3, BM=x1 , slept=7 hours. In the morning encouraged pt. to use healthy diet while in detox. Education provided in safety and hygiene care. Patient verbalized understanding. Safety measures in place : bed on lowest position with side rails x2 up for safety, all light within reach. Will continue to monitor closely and offer help.
--- NOTE | 2017-12-13 07:15 | NUR ---
START OF SHIFT PATIENT IS A 27YR OLD MALE ADMITTED TO [facility] ON 01/10/18 FOR WITHDRAWAL FROM BENZODIAZEPINES, OPIATES AND METH. HE IS ON A 3 DAY ATIVAN/ SUBUTEX TAPER AND THIS IS DAY 2. PATIENT IS ON A 1:1 FOR SAFETY AND UNSTEADY GAIT. PATIENT SLEPT FOR 7 HOURS LAST NIGHT , NO PRN MEDICATION REQUIRED OR REQUESTED ON PM SHIFT. LAST COWS 9 AND CIWA 6 @ 0400. SAFETY MEASURES IN PLACE, CONTINUE TO FOLLOW MD PLAN OF CARE
[2017-12-13] MEDS: IBUPROFEN 600 MG TABLET PO PRN ×2 (07:30→15:15)
[2017-12-13 08:00] VITALS: BP 141/72
--- NOTE | 2017-12-13 08:00 | NUR ---
RT/BREATHING TX PERFORMED
[2017-12-13 08:06] LABS: HEPATITIS B SURFACE AG Negative (Negative)
--- NOTE | 2017-12-13 08:30 | NUR ---
NURSING NOTE EMESIS X 1 LARGE
[2017-12-13] MEDS: LORAZEPAM 1 MG TABLET PO SCH ×3 (08:44→21:57)
[2017-12-13] MEDS: GABAPENTIN 300 MG CAPSULE PO SCH ×2 (08:44→15:15)
[2017-12-13] MEDS: VENLAFAXINE XR 75 MG CAP.SR.24H PO SCH (08:44)
[2017-12-13] MEDS: BUPRENORPHINE HCL 2 MG TAB.SUBL SL SCH ×3 (08:44→21:57)
[2017-12-13] MEDS: THIAMINE HCL 100 MG TABLET PO SCH (08:45)
[2017-12-13] MEDS: FOLIC ACID 1 MG TABLET PO SCH (08:45)
[2017-12-13] MEDS: MULTIVITAMINS,THERAPEUTIC TABLET PO SCH (08:45)
[2017-12-13 12:00] VITALS: BP 135/84
[2017-12-13] MEDS ORDERED: HYDR25CA PO (14:14)
[2017-12-13] MEDS ORDERED: GABA-534 PO (14:14)
[2017-12-13] MEDS ORDERED: DIPH50CA37 PO (14:14)
[2017-12-13] MEDS ORDERED: METH-406 PO (14:14)
[2017-12-13] MEDS ORDERED: IBUP-1955 PO (14:14)
[2017-12-13] MEDS ORDERED: DICY20TA28 PO ×2 (14:14)
[2017-12-13] MEDS: DICYCLOMINE HCL 20 MG TABLET PO SCH ×2 (15:21→21:57)
[2017-12-13 16:00] VITALS: BP 135/84
--- NOTE | 2017-12-13 19:24 | NUR ---
END OF SHIFT : PATIENT IS A 27 YR OLD MALE ADMITTED TO [facility] ON 12/11/17 TO DETOX FROM OPIATES AND BENZOS. HE IS ON A 3 DAY ATIVAN/ SUBUTEX TAPER AND THIS IS DAY 2. PATIENT RECEIVED A BREATHING TREATMENT TODAY FOR PULMONARY CONGESTION, SPUTUM SAMPLE SENT TO LAB AND RAPID INFLUENZA A/B TEST NEGATIVE. PATIENT HAD 1 EPISODE OF EMESIS IN THE AM WHICH RESOLVED. PATIENT CONTINUES WITH A 1:1 FOR SAFETY AND USES THE WHEEL CHAIR TO GO TO [facility]. PATIENT HAD A FLUID INTAKE OF 2700ML, 5 VOIDS AND 0 BM. LAST COWS 10 AND CIWA 13 @ 1600. CONTINUE TO FOLLOW MD PLAN OF CARE
--- NOTE | 2017-12-13 19:30 | NUR ---
START OF SHIFT NOTE : Pt. is 27 year old male admitted to [facility] on 12/10/17 for medical management of Benzodiazepine and Heroin withdrawals. Pt reports NKA, Full code and regular diet. Pt was administered MOTRIN, ROBAXIN, Resp. Treatment x1 during a day shift. Pt. is on 4 day Subutex taper, started on 12/10/2017, tolerating well. Last COWS=10, CIWA=13 recorded at 1600. Pt is A/O x4, is in the activity room , watching TV, he is still 1:1 for safety and unsteady gait. Educated patient regarding the importance of compliance to treatment and medication regime, patient verbalized understanding. Instructed patient to maintain adequate fluid and nutritional intake. Education provided in safety and hygiene care. Patient verbalized understanding. Bed in low position with wheels locked and side rails up x2. Will continue to monitor, support and encourage according to plan of care.
[2017-12-13 20:00] VITALS: BP 143/80
--- NOTE | 2017-12-14 06:22 | NUR ---
END OF SHIFT NOTE : Pt. is 27 year old male admitted to [facility] on 12/10/17 for medical management of Benzodiazepine and Heroin withdrawals. Pt reports NKA, Full code and regular diet . 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 CIWA, COWS taken when pt. was awake, last CIWA=8, COWS=8 at 04:00 . Pt. still is 1:1 for safety. Pt. went to smoke on the wheelchair with a sitter late in the evening and then fell asleep. Intake= 2,000ml, voided x2, slept=5 hours. Safety measures in place : bed on lowest position with side rails x2 up for safety, all light within reach. Will continue to monitor closely and offer help.
[2017-12-14 07:48] LABS: BASOPHILS # (AUTO) 0.1 K/uL (0.0-8.0); BASOPHILS % (AUTO) 1.5 % (0.0-2.0); EOSINOPHILS # (AUTO) 0.7 K/uL (0.0-0.7); EOSINOPHILS % (AUTO) 6.9 % (0.0-7.0); HEMATOCRIT 46.4 % (36.7-47.1); HEMOGLOBIN 15.9 g/dL (12.5-16.3); LYMPHOCYTES # (AUTO) 2.4 K/uL (20.0-40.0); LYMPHOCYTES % (AUTO) 24.9 % (20.5-51.5); MEAN CORPUSCULAR HEMOGLOBIN 30.6 uug (23.8-33.4); MEAN CORPUSCULAR HGB CONC 34 g/dL (32.5-36.3); MEAN CORPUSCULAR VOLUME 89.1 fL (73.0-96.2); MONOCYTES # (AUTO) 0.8 K/uL (2.0-10.0); MONOCYTES % (AUTO) 8.2 % (0.0-11.0); NEUTROPHILS # (AUTO) 5.6 K/uL (1.8-8.9); NEUTROPHILS % (AUTO) 58.5 % (38.5-71.5); PLATELET COUNT (AUTO) 265 K/uL (152-348); WHITE BLOOD COUNT (AUTO) 9.5 K/uL (3.6-10.2)
[2017-12-14 08:00] VITALS: BP 142/83
--- NOTE | 2017-12-14 08:20 | NUR ---
START OF SHIFT: RECEIVED PT A/O X 4. HE PRESENTS WITH BLUNTED AFFECT AND DEPRESSED MOOD. HE DENIES S/I AND H/I. HE REPORTS BODY ACHES,DEPRESSION,ANXIETY,LOOSE STOOLS ,SWEATS,CHILLS AND IRRITABILITY. COWS 10 CIWA 8. MODIFIED ATIVAN/SUBUTEX TAPER IN PROGRESS TO MANAGE S/S OF W/D. 1:1 SITTER AT BEDSIDE FOR SAFETY. HE IS AMBULATING WITH W/C DUE TO UNSTEADY GAIT. HE STATES HE SLEPT OK AND REPORTS HAVING A POOR APPETITE. ENCOURAGED INCREASED FLUIDS TO ASSIST IN FACILITATING DETOX PROCESS. WILL CONTINUE TO MONITOR AND OFFER SUPPORT.
[2017-12-14 08:31] LABS: CREATININE 0.8 mg/dL (0.6-1.3); POTASSIUM 3.8 mmol/L (3.5-5.1)
[2017-12-14] MEDS: MULTIVITAMINS,THERAPEUTIC TABLET PO SCH (08:39)
[2017-12-14] MEDS: FOLIC ACID 1 MG TABLET PO SCH (08:39)
[2017-12-14] MEDS: GABAPENTIN 300 MG CAPSULE PO SCH ×3 (08:39→20:59)
[2017-12-14] MEDS: VENLAFAXINE XR 75 MG CAP.SR.24H PO SCH (08:40)
[2017-12-14] MEDS: DICYCLOMINE HCL 20 MG TABLET PO SCH ×3 (08:40→20:59)
[2017-12-14] MEDS: THIAMINE HCL 100 MG TABLET PO SCH (08:41)
[2017-12-14] MEDS ORDERED: BUPRENORPHINE HCL 2 MG TAB.SUBL SL SCH (09:00)
[2017-12-14] MEDS ORDERED: LORAZEPAM 1 MG TABLET PO SCH (09:00)
--- NOTE | 2017-12-14 10:47 | NUR ---
1:1 DISCONTINUED PER MD.
[2017-12-14 12:00] VITALS: BP 127/79
[2017-12-14] MEDS: LORAZEPAM 1 MG TABLET PO SCH ×2 (14:21→20:59)
[2017-12-14] MEDS: BUPRENORPHINE HCL 2 MG TAB.SUBL SL SCH ×2 (14:22→20:58)
[2017-12-14 16:00] VITALS: BP 141/93
--- NOTE | 2017-12-14 18:41 | NUR ---
END OF SHIFT: PT CONTINUES ON SUBUTEX/ATIVAN TAPER TO MANAGE S/S OF W/D WHICH INCLUDE BODY ACHES,SWEATS,ANXIETY,CHILLS AND RESTLESSNESS. LAST COWS 8 CIWA 8. HE INTERACTED WITH PEERS AND ATTENDED SOME GROUPS. HIS GAIT IS STEADY. HE WAS COMPLIANT WITH INCREASED FLUIDS ENCOURAGED. NO PRNS GIVEN AND PT STATES THE DETOX MEDS ARE EFFECTIVE. WILL PASS SHIFT REPORT TO ONCOMING NIGHT NURSE.
--- NOTE | 2017-12-14 19:30 | NUR ---
START OF SHIFT NOTE : Pt. is 27 year old male admitted to [facility] on 12/10/17 for medical management of Benzodiazepine and Heroin withdrawals. Pt reports NKA, Full code and regular diet. Pt was administered MOTRIN, ROBAXIN, Resp. Treatment x1 during a day shift. Pt. is on 4 day Subutex taper, started on 12/10/2017, tolerating well. Last COWS=8, CIWA=8 recorded at 1600. Pt is A/O x4, is in the activity room participating in the meeting, communicating and socializing with other clients. Educated patient regarding the importance of compliance to treatment and medication regime, patient verbalized understanding. Encouraged to independently perform hygiene care. Encouraged to follow healthy diet while in detox. Bed in low position with wheels locked and side rails up x2. Will continue to monitor, support and encourage according to plan of care.
[2017-12-14 20:00] VITALS: BP 133/85
[2017-12-14] MEDS: CLONIDINE HCL 0.1 MG TABLET PO SCH (20:59)
[2017-12-14] MEDS: BACLOFEN 10 MG TABLET PO SCH (20:59)
--- NOTE | 2017-12-15 06:36 | NUR ---
END OF SHIFT NOTE : Pt. is 27 year old male admitted to [facility] on 12/10/17 for medical management of Benzodiazepine and Heroin withdrawals. Pt reports NKA, Full code and regular diet . 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 CIWA, COWS taken when pt. was awake, last CIWA=8, COWS=8 at 04:00 . Pt. was found sleeping on the floor near his bed, but he denies to fall down. No visible skin damage observed, pt. also denies pain at this time. Education provided in safety and hygiene care. Patient verbalized understanding. Intake= 750ml, voided x1, slept=6 hours. Safety measures in place : bed on lowest position with side rails x2 up for safety, all light within reach. Will continue to monitor closely and offer help.
--- NOTE | 2017-12-15 07:25 | NUR ---
START OF SHIFT PT IS A 27 Y/O M ADMITTED FOR MEDICALLY SUPERVISED OPIATE, BENZO, AND METH WITHDRAWAL. PT IS PLACED ON A 3 DAY ATIVAN AND SUBUTEX TAPER AND TOLERATING WELL. PT APPEARS DROWSY BUT AROUSABLE, RESPIRATIONS EVEN AND UNLABORED. PT PRESENTS GENERALIZED BODY ACHES, DIAPHORESIS, ANXIETY, RESTLESSNESS, AGITATION, AND FATIGUE. LAST COWS 8 AND CIWA 8, NO PRNS GIVEN LAST NIGHT PER CLOTH PACKER NURSE. SIDE RAILS UPX2, BED IN LOW POSITION, CALL LIGHT WITHIN REACH. SAFETY MEASURES IN PLACE. WILL CONTINUE TO MONITOR AND PROVIDE SUPPORT. Addendum: 12/15/17 at 0742 by GABRIELA BLACK RN EDUCATED PT ON MED REGIMEN AND TX PLAN. ENCOURAGED PT TO UPKEEP PERSONAL HYGIENE AND CLEANLINESS OF SPACE. PT VERBALIZED UNDERSTANDING. Addendum: 12/15/17 at 1709 by GABRIELA BLACK RN PT IS PLACED ON A 5 DAY SUBUTEX AND 4 DAY ATIVAN TAPER; TODAY BEING THE LAST.
[2017-12-15 08:00] VITALS: BP 109/69
[2017-12-15] MEDS: VENLAFAXINE XR 75 MG CAP.SR.24H PO SCH (08:35)
[2017-12-15] MEDS: GABAPENTIN 300 MG CAPSULE PO SCH ×3 (08:35→21:10)
[2017-12-15] MEDS: THIAMINE HCL 100 MG TABLET PO SCH (08:35)
[2017-12-15] MEDS: MULTIVITAMINS,THERAPEUTIC TABLET PO SCH (08:36)
[2017-12-15] MEDS: BACLOFEN 10 MG TABLET PO SCH ×3 (08:36→21:11)
[2017-12-15] MEDS: FOLIC ACID 1 MG TABLET PO SCH (08:36)
[2017-12-15] MEDS: DICYCLOMINE HCL 20 MG TABLET PO SCH ×3 (08:36→21:11)
[2017-12-15] MEDS: CLONIDINE HCL 0.1 MG TABLET PO SCH ×2 (08:36→21:11)
[2017-12-15] MEDS ORDERED: BUPRENORPHINE HCL 2 MG TAB.SUBL SL SCH (09:00)
[2017-12-15] MEDS ORDERED: LORAZEPAM 1 MG TABLET PO SCH (09:00)
[2017-12-15] MEDS ORDERED: KETOROLAC TROMETHAMINE 30 MG INJ IM PRN (11:15)
[2017-12-15 12:00] VITALS: BP 120/82
[2017-12-15 16:30] VITALS: BP 131/81
--- NOTE | 2017-12-15 19:02 | NUR ---
END OF SHIFT PT'S LAST COWS 7 AND CIWA 7 @1600. PT HAS O2 NC ON 2L TO USE ORDERED TO MAINTAIN O2 SAT ABOVE 95%. RESPIRATORY CULTURE RESULTS WERE NEGATIVE. PT HAS PARTICIPATED AND ATTENDED ALL GROUPS. PT ATE 75% OF MEALS. PT HAS COMPLETED A 5 DAY SUBUTEX AND 4 DAY ATIVAN TAPER AND TOLERATED WELL. PT HAS BEEN GIVEN 0 PRNS DURING SHIFT. PT IS TO BE DISCHARGED TOMORROW TO [facility]. PT HAS BEEN COMPLIANT WITH TX PLAN AND MED REGIMEN. PT IS METICULOUS WITH KEEPING ROOM CLEAN. PT HAS A STEADY GAIT. FLUID INTAKEPT SAFETY MEASURES IN PLACE. WILL GIVE ENDORSEMENT TO [facility] SHIFT NURSE.
--- NOTE | 2017-12-15 19:30 | NUR ---
START OF SHIFT NOTE : Pt. is 27 year old male admitted to [facility] on 12/10/17 for medical management of Benzodiazepine and Heroin withdrawals. Pt reports NKA, Full code and regular diet. No PRNs given during a day shift. Pt. was on 4 day Subutex taper, started on 12/10/2017, tolerated well. Last COWS=7, CIWA=7 recorded at 1600. Pt is A/O x3, is in his room sitting and sleeping in the chair. Vital signs taken and I encouraged him to attend group and participate in activities due to self isolation. Educated patient regarding the importance of compliance to treatment and medication regime, patient verbalized understanding.Pt. complains of insomnia, increased level of anxiety. Bed in low position with wheels locked and side rails up x2. Will continue to monitor, support and encourage according to plan of care.
[2017-12-15 20:00] VITALS: BP 108/77
--- NOTE | 2017-12-15 21:00 | NUR ---
PRN BENADRYL Pt. complains of difficulty falling asleep, insomnia. PRN BENADRYL given as ordered. Safety measures in place : bed on lowest position with side rails x2 up for safety, call light within reach. Will continue to monitor closely and offer help.
--- NOTE | 2017-12-15 22:00 | NUR ---
RE-ASSESSMENT IZZY Pt. is sleeping, RR=16, unlabored and even . Safety measures in place : bed on lowest position with side rails x2 up for safety, call light within reach. Will continue to monitor closely and offer help.
--- NOTE | 2017-12-16 06:48 | NUR ---
END OF SHIFT NOTE : Pt. is 27 year old male admitted to [facility] on 12/10/17 for medical management of Benzodiazepine and Heroin withdrawals. Pt reports NKA, Full code and regular diet. No PRNs given during a day shift. Pt. was on 4 day Subutex taper, tolerated well. Last COWS=7, CIWA=7 recorded at 04:00. Instructed patient to maintain adequate fluid and nutritional intake. Education provided in safety and hygiene care. Patient verbalized understanding. Intake= 300ml, voided x1, slept=10 hours. Pt. will be D/C today in A.M. Safety measures in place : bed on lowest position with side rails x2 up for safety, all light within reach. Will continue to monitor closely and offer help.
--- NOTE | 2017-12-16 07:30 | NUR ---
START OF SHIFT PT IS A 27 Y/O M ADMITTED FOR MEDICALLY SUPERVISED OPIATE, BENZO, AND METH WITHDRAWAL. PT WAS ON A 3 DAY ATIVAN AND SUBUTEX TAPER AND COMPLETED YESTERDAY. PT IS TO BE DISCHARGED TODAY. PT IS A/OX4, RESPIRATIONS EVEN AND UNLABORED. PT PRESENTS GENERALIZED BODY ACHES, ANXIETY, RESTLESSNESS, AGITATION. LAST COWS 7 AND CIWA 7, BENADRYL PRN GIVEN LAST NIGHT PER BILINGUAL COUNTER SALES RETAIL NURSE. PT SLEPT 10 HRS. SIDE RAILS UPX2, BED IN LOW POSITION, CALL LIGHT WITHIN REACH. SAFETY MEASURES IN PLACE. WILL MONITOR AND PROVIDE SUPPORT.
[2017-12-16 08:00] VITALS: BP 108/60
[2017-12-16 08:23] VITALS: BP 108/58
[2017-12-16] MEDS: BACLOFEN 10 MG TABLET PO SCH (08:23)
[2017-12-16] MEDS: CLONIDINE HCL 0.1 MG TABLET PO SCH (08:23)
[2017-12-16] MEDS: GABAPENTIN 300 MG CAPSULE PO SCH (08:23)
[2017-12-16] MEDS: DICYCLOMINE HCL 20 MG TABLET PO SCH (08:24)
[2017-12-16] MEDS: FOLIC ACID 1 MG TABLET PO SCH (08:24)
[2017-12-16] MEDS: THIAMINE HCL 100 MG TABLET PO SCH (08:24)
[2017-12-16] MEDS: MULTIVITAMINS,THERAPEUTIC TABLET PO SCH (08:24)
[2017-12-16] MEDS: VENLAFAXINE XR 75 MG CAP.SR.24H PO SCH (09:07)
--- NOTE | 2017-12-16 09:35 | NUR ---
DISCHARGE NOTE PT IS A/OX4, RESPIRATIONS EVEN AND UNLABORED, IN STABLE CONDITION AND VS WNL. PT DISCHARGE INSTRUCTIONS GIVEN AND EDUCATED PT WHEN TO CALL MD. PT VERBALIZED UNDERSTANDING. PT HAS BEEN DISCHARGED FROM [facility] AND LEFT THE BUILDING AT 0935 ON 12/16/17 WITH ALL BELONGINGS, DISCHARGE PAPERWORK, PRESCRIPTIONS. PT HAS BEEN PICKED UP BY [facility] AND HAS BEEN TAKEN TO [facility].
== END 2017-12-16 09:35 | disposition other institution (70) | DRG 895 ==
LOC: SRC 19:50
PROVIDERS: ADMIT Internal Medicine; ATTEND Internal Medicine
PROC: HZ2ZZZZ Detoxification Services for Substance Abuse Treatment (ICD-10-PCS; principal; 2017-12-11)
PROC: HZ31ZZZ Individual Counseling for Substance Abuse Treatment, Behavioral (ICD-10-PCS; 2017-12-14)
PROC: HZ41ZZZ Group Counseling for Substance Abuse Treatment, Behavioral (ICD-10-PCS; 2017-12-14)
DX: F11.23 Opioid dependence with withdrawal (principal); F33.2 Major depressive disorder, recurrent severe without psychotic features; I15.9 Secondary hypertension, unspecified; F13.230 Sedative, hypnotic or anxiolytic dependence with withdrawal, uncomplicated; F14.10 Cocaine abuse, uncomplicated; Z81.1 Family history of alcohol abuse and dependence; F41.9 Anxiety disorder, unspecified; Z91.5 Personal history of self-harm; Z81.8 Family history of other mental and behavioral disorders; F17.210 Nicotine dependence, cigarettes, uncomplicated; Z59.1 Inadequate housing; F16.10 Hallucinogen abuse, uncomplicated; J20.9 Acute bronchitis, unspecified; Z87.820 Personal history of traumatic brain injury; Z87.81 Personal history of (healed) traumatic fracture; G89.29 Other chronic pain; R26.81 Unsteadiness on feet; F15.10 Other stimulant abuse, uncomplicated; F10.10 Alcohol abuse, uncomplicated; Y90.9 Presence of alcohol in blood, level not specified; Z79.899 Other long term (current) drug therapy
CPT/HCPCS: 36415; 70030-TC; 71045; 80307; 83735; 85025; 86592; 86705; 86803; 87070; 87340; 87400; 87806; 94664; G0480; Q0163